=== PATIENT | female | born 1980 | race Caucasian/White ===

== ENCOUNTER 2017-03-17 22:16 | Emergency (ER) | payer OTHER | END 2017-03-17 23:48 | disposition home or self-care (01) | LOC: ER 22:16 | DX: R30.0 Dysuria (principal); I10 Essential (primary) hypertension; J45.909 Unspecified asthma, uncomplicated; F32.9 Major depressive disorder, single episode, unspecified; F17.200 Nicotine dependence, unspecified, uncomplicated; Z88.0 Allergy status to penicillin; Z79.899 Other long term (current) drug therapy; Z79.2 Long term (current) use of antibiotics ==